=== PATIENT | female | born 1970 | race Asian ===

== ENCOUNTER 2017-01-07 05:13 | Emergency (ER) | payer MEDICAID ==
[~2017-01-07] VITALS: Ht 162.6 cm; Wt 71.6 kg
[~2017-01-07 05:13] MED LIST: FLUO10CA13 PO; HYDR12.53 PO
[2017-01-07] MEDS ORDERED: HYDROcodone/APAP 5/325 TABLET ONE (05:46)
[2017-01-07] MEDS ORDERED: HYDROcodone/APAP 5/325 TABLET PO ONE (06:00)
[2017-01-07 07:35] VITALS: BP 174/97
== END 2017-01-07 07:38 | disposition home or self-care (01) ==
LOC: ED 06:02
DX: N63 Unspecified lump in breast (principal); F17.210 Nicotine dependence, cigarettes, uncomplicated; I10 Essential (primary) hypertension
CPT/HCPCS: 76641

== ENCOUNTER 2017-03-18 02:07 | Emergency (ER) | payer MEDICAID, OTHER ==
[~2017-03-18] VITALS: Ht 162.6 cm; Wt 75.0 kg
[2017-03-18 04:22] VITALS: BP 129/96
== END 2017-03-18 04:41 | disposition home or self-care (01) ==
LOC: ED 04:37
DX: S16.1XXA Strain of muscle, fascia and tendon at neck level, initial encounter (principal); S06.0X0A Concussion without loss of consciousness, initial encounter; S09.90XA Unspecified injury of head, initial encounter; S39.012A Strain of muscle, fascia and tendon of lower back, initial encounter; I10 Essential (primary) hypertension; W07.XXXA Fall from chair, initial encounter; Y93.89 Activity, other specified; Y92.59 Other trade areas as the place of occurrence of the external cause; Y99.8 Other external cause status
CPT/HCPCS: 70450; 72072; 72110; 72125; 99284

== ENCOUNTER 2018-09-17 13:02 | Emergency (ER) | payer MEDICAID ==
[~2018-09-17] VITALS: Ht 162.6 cm; Wt 77.0 kg
[~2018-09-17 13:02] MED LIST changes: +HYDR12.517 PO; -HYDR12.53 PO
[2018-09-17 13:45] LABS: BASOPHILS # (AUTO) 0.03 x10^3/uL (0-0.1); BASOPHILS % (AUTO) 0 % (0-1); EOSINOPHILS # (AUTO) 0.14 x10^3/uL (0-0.4); EOSINOPHILS % (AUTO) 1 % (1-7); LYMPHOCYTES # (AUTO) 2.99 x10^3/uL (1-3.4); LYMPHOCYTES % (AUTO) 30 % (22-44); MD NO; MEAN CORPUSCULAR HEMOGLOBIN 30.8 pg (27.0-34.8); MEAN CORPUSCULAR VOLUME 90.7 fL (80-100); MEAN PLATELET VOLUME 8.5 fL (7.4-10.4); MONOCYTES % (AUTO) 8 % (2-9); NEUTROPHILS % (AUTO) 60 % (42-75); PLATELET COUNT 284 x10^3/uL (130-400); RED BLOOD COUNT 5.01 x10^6/uL (3.82-5.3); RED CELL DISTRIBUTION WIDTH 13.8 % (9.6-15.2)
[2018-09-17 13:52] LABS: ALBUMIN 3.7 g/dL (3.4-5.0); ANION GAP 6 mmol/L (5-15); CHLORIDE 108 mmol/L (98-107)
[2018-09-17 13:55] LABS: ALANINE AMINOTRANSFERASE 40 U/L (12-78); ALKALINE PHOSPHATASE 96 U/L (45-117); BILIRUBIN,TOTAL 0.4 mg/dL (0.2-1.0); CREATININE 0.88 mg/dL (0.55-1.02)
--- NOTE | 2018-09-17 14:20 | NUR ---
TO ROOM 37
--- NOTE | 2018-09-17 15:08 | NUR ---
PT HERE FOR ELEVATED BP. PT REPORT SHE STOPPED TAKING HER BP MEDS. HAS NO FOLLOWED UP WITH A PCP AT THIS TIME. PT DENIES TIPTON OR OTHER SYMPTOMS. PT RESTING IN BED COMFORTABLEY.
--- NOTE | 2018-09-17 15:45 | NUR ---
PT MEDICATED FOR HIGH BP
--- NOTE | 2018-09-17 16:01 | NUR ---
UA SENT TO LAB
[2018-09-17 16:13] LABS: MICROSCOPIC AUTO
[2018-09-17 16:14] LABS: CULTURE INDICATED? NO
[2018-09-17 17:35] VITALS: BP 169/103
--- NOTE | 2018-09-17 17:35 | NUR ---
TASK RN: PT SLEEPING, EASY TO AROUSE. ALERT AND INTERACTING WELL WHEN AWAKENED. BP 169/103. PT HAS BEEN CLEARED FOR DISCHARGE. AMBULATING WELL.
== END 2018-09-17 17:37 | disposition home or self-care (01) ==
LOC: ED 15:19
DX: I10 Essential (primary) hypertension (principal); G43.909 Migraine, unspecified, not intractable, without status migrainosus; N19 Unspecified kidney failure; F17.200 Nicotine dependence, unspecified, uncomplicated; Z72.9 Problem related to lifestyle, unspecified
CPT/HCPCS: 36415; 80053; 81001; 85025; 93005; 99284